=== PATIENT | female | born 1990 | race Asian ===

== ENCOUNTER 2018-12-20 10:38 | Emergency (ER) | payer BC, MEDICAID ==
[~2018-12-20] VITALS: Ht 157.5 cm; Wt 73.0 kg
[2018-12-20 10:45] VITALS: BP 121/72
[2018-12-20 11:43] LABS: MEAN CORPUSCULAR HEMOGLOBIN 32.1 pg (27.0-34.8); MEAN CORPUSCULAR HGB CONC 34.7 g/dL (32.4-35.8); MEAN CORPUSCULAR VOLUME 92.7 fL (80-100); MEAN PLATELET VOLUME 6.9 fL (7.4-10.4); PLATELET COUNT 349 x10^3/uL (130-400); RED BLOOD COUNT 3.89 x10^6/uL (3.82-5.3); RED CELL DISTRIBUTION WIDTH 12.6 % (9.6-15.2)
[2018-12-20 11:46] LABS: CULTURE INDICATED? YES; MICROSCOPIC INDICATED
[2018-12-20 11:48] LABS: BASOPHILS # (AUTO) 0.05 x10^3/uL (0-0.1); BASOPHILS % (AUTO) 1 % (0-1); EOSINOPHILS % (AUTO) 0 % (1-7); LYMPHOCYTES # (AUTO) 1.02 x10^3/uL (1-3.4); LYMPHOCYTES % (AUTO) 11 % (22-44); MONOCYTES # (AUTO) 0.16 x10^3/uL (0.2-0.8); MONOCYTES % (AUTO) 2 % (2-9); NEUTROPHILS # (AUTO) 8.15 x10^3/uL (1.8-6.8); NEUTROPHILS % (AUTO) 87 % (42-75)
[2018-12-20 11:49] LABS: MD NO
[2018-12-20 11:52] LABS: ALANINE AMINOTRANSFERASE 17 U/L (12-78); ANION GAP 5 mmol/L (5-15); CALCIUM 7.8 mg/dL (8.5-10.1); CHLORIDE 114 mmol/L (98-107); CREATININE 0.64 mg/dL (0.55-1.02)
[2018-12-20 11:57] LABS: ALKALINE PHOSPHATASE 72 U/L (45-117); BILIRUBIN,TOTAL 0.2 mg/dL (0.2-1.0); TOTAL PROTEIN 6.1 g/dL (6.4-8.2)
--- NOTE | 2018-12-20 15:36 | NUR ---
PT AMBULATED TO ROOM WITH STEADY GAIT.
--- NOTE | 2018-12-20 15:44 | NUR ---
PT STATED THAT SHE WOKE UP THIS MORNING WITH LOW BACK PAIN AND RIGHT FLANK PAIN. REPORTS VOMITING THIS MORNING. DENIES INJURY. REPORTS URINARY FREQUENCY. MD AT BEDSIDE.
--- NOTE | 2018-12-20 16:21 | NUR ---
Patient given discharge instructions and they have confirmed that they understand the instructions. Patient ambulatory with steady gait.
== END 2018-12-20 16:23 | disposition home or self-care (01) ==
LOC: ED 16:01
DX: N30.00 Acute cystitis without hematuria (principal)
CPT/HCPCS: 36415; 80053; 81001; 83690; 84703; 85025; 87086; 99283